=== PATIENT | female | born 1980 | race Caucasian/White ===

== ENCOUNTER → 2017-09-12 | Outpatient (CLI) | payer BC, OTHER ==
--- NOTE | 2017-09-12 16:38 | DIAGNOSTIC IMAGING REPORT ---
SACRUM AND COCCYX 3 VIEWS CLINICAL HISTORY: Coccygeal pain. FINDINGS: 3 views of the sacrum and coccyx are obtained. No prior studies are available for comparison at the time of dictation. The skeletal structures are well mineralized. There is contour irregularity identified involving the body of S5 seen on the lateral view which likely represents a nondistracted fracture. No additional findings are concerning for fracture involving the sacrum or coccyx. The sacroiliac joints are maintained. A bone island is questioned in the left iliac wing. No bowel obstruction is seen. IMPRESSION: Suspect a nondistracted fracture involving the body of S5 seen only on the lateral view. Correlate for point tenderness at this level. Electronically signed by: Philippe Huertas M.D. 09/12/2017 4:36 PM Dictated Date/Time: 09/12/2017 4:35 PM
== END | disposition home or self-care (01) ==
LOC: C.RDSM 19:48
PROVIDERS: ATTEND Family Medicine
DX: M53.3 Sacrococcygeal disorders, not elsewhere classified (principal)